=== PATIENT | female | born 1995 | race Hispanic/Latino ===

== ENCOUNTER 2019-05-03 22:15 | Emergency (ER) | payer SELFPAY ==
--- NOTE | 2019-05-09 06:11 | PQF ---
[facility] POST DISCHARGE CLINICAL DOCUMENTATION IMPROVEMENT CLARIFICATION FORM l Todays Date: 05/07/2019 l Patients Name Aide Caraballo l l Admit Date 05/03/2019 l Disch Date 05/03/2019 It Service Continuity Supervisor Name Srinivas kebede Email: [email or web address] Cell: [phone] To be completed by It Service Continuity Supervisor: Present Clinical Indicators - Signs / Symptoms Results and Location in Medical Record [ ] Documentation of: [ ] [ ] Documentation of: [ ] [ ] Documentation of: [ ] [ ] Documentation of: [ ] [ ] Risks [ ] [ ] [ ] Treatment [x] Bronchitis Query for specificity of acute or chronic Bronchitis [ ] [ ] To be completed by Physician: MARGY Hedrick Kristar The documentation in this patients record requires clarification to ensure coding compliance and accuracy. Check the appropriate box and include in your discharge summary. [ ] [ ] [ ] [ ] Please check this box if this does not apply to this patient [ ] Unable to determine [ ] Other diagnosis: Review the following information and exercise your independent professional judgment in responding to the clarification. Based upon the clinical findings, risk factors, and treatment, please clarify if you are treating one of the above probable or suspected diagnoses. Physician Signature: Date Time MTDD
== END 2019-05-04 02:00 | disposition home or self-care (01) ==
LOC: ERS 22:15
DX: J40 Bronchitis, not specified as acute or chronic (principal); F17.200 Nicotine dependence, unspecified, uncomplicated
CPT/HCPCS: 94640; J7620

== ENCOUNTER 2019-10-09 13:40 | Emergency (ER) | payer OTHER, SELFPAY ==
[2019-10-10 14:54] LABS: SARS-CoV-2 MS2 Positive; SARS-CoV-2 N Gene Negative; SARS-CoV-2 S Gene Negative; SARS-CoV-2 orf1ab Negative
== END 2019-10-09 14:09 | disposition home or self-care (01) ==
LOC: ERS 13:40
DX: Z20.828 Contact with and (suspected) exposure to other viral communicable diseases (principal); F17.290 Nicotine dependence, other tobacco product, uncomplicated
CPT/HCPCS: 87635; 99283; U0003